=== PATIENT | male | born 1995 | race Caucasian/White ===

== ENCOUNTER 2018-04-23 11:34 | Day surgery (SDC) | payer OTHER ==
[~2018-04-23 11:34] MED LIST: ACETAMINOPHEN 0 MG/0 ML RTUPB IV ONE; CEFAZOLIN 2 GM/D5W RTU 2 GM/50 ML RTUPB IV ONE; CEFAZOLIN 2 GM/D5W RTU 2 GM/50 ML RTUPB IV PRN; DEXAMETHASONE SOD PHOSPHATE INJ 4 MG/1 ML VIAL ONE; FENTANYL CITRATE INJ/PF 250 MCG/5 ML AMPULE ONE; MIDAZOLAM 2 MG/2 ML INJ ONE; ONDANSETRON HCL INJ/PF 4 MG/2 ML SDV ONE; PROPOFOL INJ 200 MG/20 ML VIAL IV ONE
[2018-04-23] MEDS ORDERED: RINGERS SOLUTION,LACTATED 1,000 ML IV PRN ×2 (12:29)
[2018-04-23] MEDS ORDERED: ONDANSETRON HCL INJ/PF 4 MG/2 ML SDV ONE (13:09)
[2018-04-23] MEDS ORDERED: KETOROLAC TROMETHAMINE 60 MG/2 ML SDV ONE (13:09)
[2018-04-23] MEDS ORDERED: DEXAMETHASONE SOD PHOSPHATE INJ 4 MG/1 ML VIAL ONE (13:09)
[2018-04-23] MEDS ORDERED: FENTANYL CITRATE INJ/PF 100 MCG/2 ML AMPUL ONE (13:25)
[2018-04-23] MEDS ORDERED: PROPOFOL INJ 200 MG/20 ML VIAL IV ONE (13:26)
[2018-04-23] MEDS ORDERED: MIDAZOLAM 2 MG/2 ML INJ ONE (13:26)
[2018-04-23] MEDS ORDERED: BUPIVACAINE HCL 0.5 % INJ/PF 30 ML SDV ONE (13:31)
[2018-04-23] MEDS ORDERED: LIDOCAINE 1% INJ-PF (10 MG/ML) 30 ML SDV ONE (13:31)
[2018-04-23] MEDS ORDERED: PROMETHAZINE HCL INJ 25 MG/1 ML VIAL IV PRN (14:00)
[2018-04-23] MEDS ORDERED: MEPERIDINE HCL/PF INJ 25 MG/1 ML DISP.SYRIN IV PRN (14:00)
[2018-04-23] MEDS ORDERED: FENTANYL CITRATE INJ/PF 100 MCG/2 ML AMPUL IV PRN ×3 (14:00)
[2018-04-23] MEDS ORDERED: HYDROMORPHONE HCL INJ/PF 2 MG/ML AMPULE ONE (15:06)
[2018-04-23] MEDS ORDERED: ONDANSETRON HCL INJ/PF 4 MG/2 ML SDV IV PRN (16:40)
[2018-04-23] MEDS ORDERED: OXYCODONE-ACETAMINOPHEN 5-325 MG TABLET PO PRN (16:40)
[2018-04-23] MEDS ORDERED: MORPHINE SULFATE 10 MG/ML INJ IV PRN (16:40)
--- NOTE | 2018-04-23 16:41 | Discharge Summary ---
Discharge Summary (SDC) - Discharge Final Diagnosis: Right scapholunate ligament tear Date of Surgery: 04/23/18 Forms: ASU Anesthesia D/C Instruction, Discharge POC-Surgical Service Treatment or Instructions: Schedule Follow Up w/ Dr. Lewis Odonnell @ [facility] to be seen in 10-14 days or as scheduled [place]: [place]: [place]: Ice and elevate Keep splint clean/dry/intact. If your fingers become numb please unwrap the Luis Fernando wrap but leave the splint in place, if the sensation does not return within 30 minutes please return to the emergency department. May begin finger range of motion attempting to make full fist. Please use ibuprofen (Motrin or Advil) 600-800 mg every 8 hours as needed for pain or fever DO NOT TAKE w/ TORADOL may use once TORADOL complete. You may also use acetaminophen (Tylenol) 1000 mg every 4-6 hours as needed for pain or fever. Please be aware that many medications contain acetaminophen, do not exceed a total of 1000 mg of acetaminophen every 6 hours. If ibuprofen and acetaminophen are not sufficient for your pain you may take the Percocet/Seminary. Please be aware that the Percocet/Seminary does contain Tylenol. Stool softener of choice when on pain medication. Prescriptions: Ketorolac Tromethamine [Toradol 10 mg Tablet] 10 mg PO Q8HP PRN #12 tablet PRN Reason: Oxycodone HCl/Acetaminophen [Percocet 5-325 mg Tablet] 1 tab PO Q6 PRN #25 tab PRN Reason: Referrals: LEWIS ODONNELL DO [ACTIVE STAFF] - 05/06/18 10:00 am Discharge Diet: As Tolerated Respiratory Treatments at Home: Deep Breathing/Coughing Discharge Activity: No Lifting Over 10 Pounds, No Lifting/Push/Pulling Report the Following to Your Physician Immediately: Fever over 101 Degrees, Unusual Bleeding, Redness, Swelling, Warmth, Increased Soreness
--- NOTE | 2018-04-23 16:51 | Operative Report ---
Operative Report DATE OF SURGERY: 04/23/18 PREOPERATIVE DIAGNOSIS: Right wrist scapholunate ligament tear POSTOPERATIVE DIAGNOSIS: Same OPERATION: Right wrist arthroscopy with open repair scapholunate ligament with dorsal capsulodesis SURGEON: NAVNEET ODONNELL ANESTHESIA: GA COMPLICATIONS: None ESTIMATED BLOOD LOSS: Minimal PROCEDURE: Indication for above procedure: 23-year-old male who sustained a fall onto his outstretched right wrist. Patient had outside radiographs and MRI demonstrate scapholunate ligament tear and patient was given a splint. Upon follow-up we discussed treatment options including operative versus nonoperative intervention postoperative expectations and natural history of scapholunate ligament injuries were explained patient verbalized understanding consented for the procedure. Procedure In Detail: Patient was seen and evaluated in the preoperative holding area. The RIGHT upper extremity was initialized and marked. Patient received 2g of Ancef IV for bacterial prophylaxis. Patient was taken back to the operative room where transferred to the operative table and placed under general anesthesia. Once they were adequately anesthetized a nonsterile tourniquet was placed on the upper extremity. A surgical team debriefing was performed ensuring all instrumentation was available, the surgical procedure was discussed with possible concerns reviewed. The upper extremity was prepped with chlorhexidine and alcohol and draped in a sterile fashion. A timeout was done identifying correct patient, procedure and extremity everyone in attendance agree with this and verbalized no concerns. The extremity was exsanguinated the tourniquet was inflated to 250 mmHg. A 3-4 portal was established arthroscope introduced into the radiocarpal joint. Via triangulation a 4-5 portal was established. Diagnostic arthroscopy demonstrated full-thickness scapholunate ligament tear. No evidence of degenerative changes of the radiocarpal joint. There was loosening of the TFCC but no definitive tear was appreciated. Some fraying along the ulnar aspect was identified along with synovitis along the prestyloid recess. Partial synovectomy was performed and the TFCC debrided. A midcarpal radial portal was then established diagnostic arthroscopy demonstrated full-thickness Giesler IV scapholunate ligament tear no evidence of lunotriquetral malalignment or step- off. Decision was then made to proceed with open repair. Longitudinal skin incision was made just ulnar to Joselito's tubercle. Blunt dissection was performed. Branches of the superficial nerve were identified. The distal portion of the third dorsal compartment was opened and the EPL tendon exposed and retracted. A Z shaped retinacular flap was then established and the fourth dorsal compartment and second dorsal compartment retracted respectively. The PIN nerve was identified and a nerve sparing capsulotomy was performed which was proximally based to preserve proprioception. Once exposed the scapholunate interval demonstrated significant widening and rotational malalignment. A 0.062 K wires placed into the scaphoid and lunate the scapholunate gap and rotational abnormality was corrected with extension, supination and dorsal translation the lunate was corrected with volar flexion. This did close the gap there was a small remaining gap along the proximal aspect after multiple attempts and under direct visualization the gap was securely closed and thus this was likely persistent mild widening consistent with patient's anatomy. A skin incision was then made along the radial-scaphoid articulation branches of the superficial radial nerve were identified and retracted. A 0.045 K wire and a 0.054 K wire were placed obliquely across the scapholunate interval. Inspection of the carpus demonstrated scapholunate tear from the scaphoid there continues to be remnant of the scapholunate ligament to allow for repair thus decision was made to proceed with repair and concomitant capsulodesis. A locking stitch was placed into the scapholunate ligament and a 3.5 mm swivel lock was loaded with the locking stitch and fiber tape to secure the scapholunate ligament within the lunate centrally. The remaining fiber tape was then placed within a 3.5 mm swivel lock and secured within the scaphoid to provide an internal brace. A 2.4 mm bio suture tack was then placed along the distal aspect of the scaphoid and the D I C was secured into the distal scaphoid to provide rotational control. C-arm fluoroscopy was obtained confirming reduction of the scapholunate and capitolunate angle on lateral view with decreased scapholunate widening. Wound was copiously irrigated with normal saline. The remaining suture within the lunate anchor was then placed through the dorsal capsule to provide some further stability. The remaining capsule was then closed with interrupted 3-0 Ethibond suture. The retinacular flap was closed with interrupted 4-0 Monocryl suture there was no evidence of extensor tendon subluxation or bow-stringing. Tourniquet was then deflated. A peripheral bleeding was controlled with bipolar cautery. An additional 0.045 K wire was placed across the scaphoid-capitate articulation. K wires were cut below the skin. Subcutaneous tissues were closed with interrupted 4-0 Monocryl suture. Skin was closed with 3-0 nylon suture. 30 cc of 0.5% bupivacaine without epinephrine was injected for postoperative pain control. Patient was placed in a volar resting splint with the wrist in neutral position. Sponge counts, instrument counts, needle counts were correct. Patient was then awoken from anesthesia. Transferred from the operating room table to the operating room stretcher. There was no intraoperative complications patient tolerated procedure well stable to PACU. Postoperative plan: Patient follow-up the office in 2 weeks for suture removal and be placed in a short arm cast. 6 weeks postop we will proceed with removal of scaphoid capitate pin patient will begin range of motion and FCR proprioception including dart thrower's motion. At 10-12 weeks postoperatively we will proceed with removal of the scaphoid-lunate pins.
--- NOTE | 2018-04-23 17:25 | RADIOLOGY REPORT (SQ) ---
EXAM DESCRIPTION: WRIST RIGHT 3 VIEWS; NO CHG FLUORO COMPLETED DATE/TIME: 04/23/2018 4:53 pm REASON FOR STUDY: PERC PINNING W/SCAPHOLUNATE REPAIR; PERC PINNING S63.391A TRAUMATIC RUPTURE OF OT H LIGAMENT OF RIGHT WRIST, I COMPARISON: None. FLUOROSCOPY TIME: 2 minutes 5 seconds Spot images saved to PACS. TECHNIQUE: Intra-operative images acquired during surgical procedure to evaluate progress. NUMBER OF IMAGES: 6 LIMITATIONS: None. FINDINGS: Fluoroscopy was provided for intraoperative procedure. Please refer to the operative repo rt for further discussion. IMPRESSION: IMAGE(S) OBTAINED DURING PROCEDURE. COMMENT: Quality ID 145: Final reports for procedures using fluoroscopy that document radiation exp osure indices, or exposure time and number of fluorographic images (if radiation exposure indices are not available) Please consult full operative report of the attending physician for description of the procedure. TECHNICAL DOCUMENTATION: JOB ID: [id number] [employer] All Rights Reserved Reading location - IP/workstation name: [email or web address]
--- NOTE | 2018-04-23 17:25 | RADIOLOGY REPORT (SQ) ---
EXAM DESCRIPTION: WRIST RIGHT 3 VIEWS; NO CHG FLUORO COMPLETED DATE/TIME: 04/23/2018 4:53 pm REASON FOR STUDY: PERC PINNING W/SCAPHOLUNATE REPAIR; PERC PINNING S63.391A TRAUMATIC RUPTURE OF OT H LIGAMENT OF RIGHT WRIST, I COMPARISON: None. FLUOROSCOPY TIME: 2 minutes 5 seconds Spot images saved to PACS. TECHNIQUE: Intra-operative images acquired during surgical procedure to evaluate progress. NUMBER OF IMAGES: 6 LIMITATIONS: None. FINDINGS: Fluoroscopy was provided for intraoperative procedure. Please refer to the operative repo rt for further discussion. IMPRESSION: IMAGE(S) OBTAINED DURING PROCEDURE. COMMENT: Quality ID 145: Final reports for procedures using fluoroscopy that document radiation exp osure indices, or exposure time and number of fluorographic images (if radiation exposure indices are not available) Please consult full operative report of the attending physician for description of the procedure. TECHNICAL DOCUMENTATION: JOB ID: [id number] [employer]- All Rights Reserved Reading location - IP/workstation name: [email or web address]
[2018-04-23 19:00] VITALS: BP 124/76
== END 2018-04-23 18:50 | disposition home or self-care (01) ==
LOC: OROUT 11:34 → EDBD 13:45 → OROUT 18:50
PROVIDERS: ATTEND Orthopaedic Surgery
DX: S63.391A Traumatic rupture of other ligament of right wrist, initial encounter (principal); W19.XXXA Unspecified fall, initial encounter; M25.331 Other instability, right wrist
CPT/HCPCS: 73110; 25320; 29840; C1713 ×5; J2250; J3490; J1100; J1885; J3010; J1170; J2405; J2704; J0690; 01830; J0131

== ENCOUNTER 2018-07-12 09:55 | Day surgery (SDC) | payer OTHER ==
[~2018-07-12 09:55] MED LIST changes: -ACETAMINOPHEN 0 MG/0 ML RTUPB IV ONE; +ACETAMINOPHEN 1,000 MG/100 ML RTUPB IV ONE; +BUPIVACAINE HCL 0.5 % INJ/PF 30 ML SDV ONE; +FENTANYL CITRATE INJ/PF 100 MCG/2 ML AMPUL ONE; -FENTANYL CITRATE INJ/PF 250 MCG/5 ML AMPULE ONE; +LACTATED RINGERS 1000 ML IV PRN; +LIDOCAINE 0.5% INJ-PF (5 MG/ML) 50 ML SDV SUBCUT PRN
[2018-07-12] MEDS ORDERED: LIDOCAINE 1% INJ-PF (10 MG/ML) 30 ML SDV ONE (12:05)
--- NOTE | 2018-07-12 13:35 | Discharge Summary ---
Discharge Summary (SDC) - Discharge Final Diagnosis: Painful Hardware Right Wrist Date of Surgery: 07/12/18 Discharge Date: 07/12/18 Condition: Good Forms: ASU Anesthesia D/C Instruction, Discharge POC-Surgical Service Treatment or Instructions: Schedule Follow Up w/ Dr. Lewis Odonnell @ [facility] for Surgery to be seen in 10-14 days or as scheduled [place]: [place]: [place]: May remove dressing on postop day #3, keep incision covered and dry. Ice and elevate May begin finger range of motion attempting to make full fist. Stool softener of choice when on pain medication. USE OF [id number] IBUPROFEN: Ibuprofen (Advil, Nuprin, Medipren, Motrin IB) is a medication for fever and pain control. In addition, it has anti- inflammatory effects which may be beneficial, especially in the treatment of injuries. It's best to take ibuprofen with food. Persons with ulcer disease or allergy to aspirin should notify their physician of this before taking ibuprofen. Ibuprofen can be given every four to six hours, for a total of four doses daily. Age Pain or fever dose Antiinflammatory dose 6-8 yr 200 mg (1 tab) 200 mg (1 tab) 9-11 yr 200 mg (1 tab) 200-400 mg (1-2 tab) 11-14 yr 200-400 mg (1-2 tab) 400 mg (2 tab) 15-adult 400 mg (2 tab) 600 mg (3 tab) ORAL NARCOTIC MEDICATION: You have been given a prescription for pain control. This medication is a narcotic. It's best taken with food, as nausea can result if taken on an empty stomach. Don't operate machinery or drive within six hours of taking this medication. Do not combine this medicine with alcohol, or with any medication which can cause sedation (such as cold tablets or sleeping pills) unless you get permission from the physician. Narcotics tend to cause constipation. If possible, drink plenty of fluids and eat a diet high in fiber and fruits. Please be aware that prescription narcotics also have the potential for abuse. People become addicted to these medications because of the general sense of wellbeing that they induce. This feeling along with a significant reduction in tension, anxiety, and aggression provides a stimulating seductive quality to these drugs. Once your pain is under control, we encourage you to discard your unused narcotics. Prescriptions: Hydrocodone/Acetaminophen [[place] 5-325 mg Tablet] 1 tab PO Q6 PRN #15 tablet PRN Reason: Referrals: LEWIS ODONNELL DO [ACTIVE STAFF] - 07/25/18 9:50 am Discharge Diet: As Tolerated Respiratory Treatments at Home: Deep Breathing/Coughing Discharge Activity: No Lifting Over 10 Pounds, No Lifting/Push/Pulling Report the Following to Your Physician Immediately: Fever over 101 Degrees, Unusual Bleeding, Redness, Swelling, Warmth
[2018-07-12] MEDS ORDERED: MEPERIDINE HCL/PF INJ 25 MG/1 ML DISP.SYRIN IV PRN (13:45)
[2018-07-12] MEDS ORDERED: FENTANYL CITRATE INJ/PF 100 MCG/2 ML AMPUL IV PRN ×3 (13:45)
[2018-07-12] MEDS ORDERED: MORPHINE SULFATE 10 MG/ML INJ IV PRN (13:45)
[2018-07-12] MEDS ORDERED: PROMETHAZINE HCL INJ 25 MG/1 ML VIAL IV PRN ×2 (13:45)
[2018-07-12] MEDS ORDERED: DIPHENHYDRAMINE HCL 50 MG/ML VIAL IV PRN (13:45)
--- NOTE | 2018-07-12 14:08 | Operative Report ---
Operative Report DATE OF SURGERY: 07/12/18 PREOPERATIVE DIAGNOSIS: Retained painful hardware right wrist POSTOPERATIVE DIAGNOSIS: Same OPERATION: Removal of hardware right wrist SURGEON: NAVNEET ODONNELL ANESTHESIA: LMAC - No COMPLICATIONS: None ESTIMATED BLOOD LOSS: Minimal PROCEDURE: Indication for above procedure: 23-year-old male who sustained a scapholunate injury. He he underwent scapholunate ligament repair successfully. K wires were placed within the scaphoid capitate and scapholunate interval and decision was made to proceed with K wire removal to begin range of motion exercises. Risk and benefits were explained patient verbalized understanding consented for the procedure. Procedure In Detail: Patient was seen and evaluated in the preoperative holding area. The RIGHT upper extremity was initialized and marked. Patient received 2g of Ancef IV for bacterial prophylaxis. Patient was taken back to the operative room where transferred to the operative table and placed under anesthesia. Once they were adequately anesthetized a nonsterile tourniquet was placed on the upper extremity. A surgical team debriefing was performed ensuring all instrumentation was available, the surgical procedure was discussed with possible concerns reviewed. Local block was performed with 5 cc 1% lidocaine without epinephrine the upper extremity was prepped with chlorhexidine and alcohol and draped in a sterile fashion. A timeout was done identifying correct patient, procedure and extremity everyone in attendance agree with this and verbalized no concerns. The extremity was exsanguinated the tourniquet was inflated to 250 mmHg. Longitudinal skin incision was made Along the radial aspect of the wrist at the previous surgical site. K wires were isolated and superficial nerve retracted. K wires were then successfully removed. Under live C-arm fluoroscopy wrist flexion extension was performed there is no evidence of scapholunate widening. Normal scapholunate angle on lateral view. Wound was copiously irrigated with normal saline. Skin was closed with interrupted 4-0 nylon suture and a soft dressing placed. Tourniquet deflated. Sponge counts, instrument counts, needle counts were correct. Patient was then awoken from anesthesia. Transferred from the operating room table to the operating room stretcher. There was no intraoperative complications patient tolerated procedure well stable to PACU. Postop plan: Patient will begin occupational therapy as per scapholunate ligament protocol. We will obtain x-rays at follow-up visit.
[2018-07-12] MEDS: FENTANYL CITRATE INJ/PF 100 MCG/2 ML AMPUL ONE ×2 (14:14→14:19)
[2018-07-12] MEDS ORDERED: HYDROCODONE/ACETAMINOPHEN 5-325 MG TABLET PO PRN (14:48)
[2018-07-12 16:22] VITALS: BP 123/70
--- NOTE | 2018-07-13 15:26 | RADIOLOGY REPORT (SQ) ---
EXAM DESCRIPTION: NO CHG FLUORO; WRIST RIGHT 3 VIEWS COMPLETED DATE/TIME: 07/12/2018 7:10 pm REASON FOR STUDY: PERC PIN REMOVAL S63.391A TRAUMATIC RUPTURE OF OTH LIGAMENT OF RIGHT WRIST, I COMPARISON: None. FLUOROSCOPY TIME: 0.5 minutes 4 images saved to PACS. TECHNIQUE: Intra-operative images acquired during surgical procedure to evaluate progress. NUMBER OF IMAGES: 4 LIMITATIONS: None. FINDINGS: Images centered over radiocarpal joint. Orthopedic pins have been removed. IMPRESSION: IMAGE(S) OBTAINED DURING PROCEDURE. COMMENT: Quality ID 145: Final reports for procedures using fluoroscopy that document radiation exp osure indices, or exposure time and number of fluorographic images (if radiation exposure indices are not available) Please consult full operative report of the attending physician for description of the procedure. TECHNICAL DOCUMENTATION: JOB ID: [id number] [employer]- All Rights Reserved Reading location - IP/workstation name: [email or web address]
--- NOTE | 2018-07-13 15:26 | RADIOLOGY REPORT (SQ) ---
EXAM DESCRIPTION: NO CHG FLUORO; WRIST RIGHT 3 VIEWS COMPLETED DATE/TIME: 07/12/2018 7:10 pm REASON FOR STUDY: PERC PIN REMOVAL S63.391A TRAUMATIC RUPTURE OF OTH LIGAMENT OF RIGHT WRIST, I COMPARISON: None. FLUOROSCOPY TIME: 0.5 minutes 4 images saved to PACS. TECHNIQUE: Intra-operative images acquired during surgical procedure to evaluate progress. NUMBER OF IMAGES: 4 LIMITATIONS: None. FINDINGS: Images centered over radiocarpal joint. Orthopedic pins have been removed. IMPRESSION: IMAGE(S) OBTAINED DURING PROCEDURE. COMMENT: Quality ID 145: Final reports for procedures using fluoroscopy that document radiation exp osure indices, or exposure time and number of fluorographic images (if radiation exposure indices are not available) Please consult full operative report of the attending physician for description of the procedure. TECHNICAL DOCUMENTATION: JOB ID: [id number] [employer]- All Rights Reserved Reading location - IP/workstation name: [email or web address]
== END 2018-07-12 16:10 | disposition home or self-care (01) ==
LOC: OROUT 09:55
PROVIDERS: ATTEND Orthopaedic Surgery
DX: T84.84XA Pain due to internal orthopedic prosthetic devices, implants and grafts, initial encounter (principal); Y83.8 Other surgical procedures as the cause of abnormal reaction of the patient, or of later complication, without mention of misadventure at the time of the procedure; F17.290 Nicotine dependence, other tobacco product, uncomplicated
CPT/HCPCS: 20680; 73110; J2250; J1100; J3010; J3490; J2405; J2704; J0690; J0131; 01830